=== PATIENT | male | born 1990 | race Caucasian/White ===

== ENCOUNTER 2019-01-15 12:55 | Emergency (ER) | payer MEDICARE, MEDICAID ==
--- NOTE | 2019-01-15 13:37 | ER Document Report ---
ED Medical Screen (RME) - General Chief Complaint: Leg Swelling Stated Complaint: LEG PAIN Time Seen by Provider: 01/15/19 13:30 TRAVEL OUTSIDE OF THE [place] IN LAST 30 DAYS: No - HPI Notes: 01/15/19 13:35 Patient is a 28-year-old male morbidly obese with no other medical history who presents complaining of bilateral lower extremity swelling that has been building over the past couple weeks. He does not take any medicines daily. He is eating and drinking without difficult he. He is urinating normally and having normal bowel movements. Patient states that he also has some crusting to his right eye that he noticed today some irritation. He does not wear contact lenses. Denies any prolonged immobilization, distance travel, recent surgery/trauma, personal cancer history, hormone use, or previous DVT/PE. Denies ANDERSON, fever, neck pain, URI, CP, SOB, Abd pain, or rash. I have treated and performed a rapid initial assessment of this patient. A comprehensive ED assessment and evaluation of the patient, analysis of test results and completion of medical decision making process will be conducted by additional ED providers. PHYSICAL EXAMINATION: GENERAL: morbidly obese. A&Ox4. Answers questions appropriately. Rt Eye: + mild injection with some flaking inferior lid/lashes. LUNGS: Breath sounds clear to auscultation bilaterally and equal. No wheezes rales or rhonchi. HEART: Regular rate and rhythm without murmurs, rubs, gallops. Extremities: 2-3+ pitting edema b/l LE's. No erythema. NEUROLOGICAL: Normal speech, normal gait. PSYCH: Normal mood, normal affect. - Related Data Allergies/Adverse Reactions: No Known Allergies Allergy (Unverified 01/15/19 12:58) Physical Exam - Vital signs Vitals: Temp Pulse Resp BP Pulse Ox 98.6 F 103 H 16 167/92 H 96 01/15/19 13:14 01/15/19 13:14 01/15/19 13:14 01/15/19 13:14 01/15/19 13:14 Course - Vital Signs Vital signs: Temp Pulse Resp BP Pulse Ox 98.6 F 103 H 16 167/92 H 96 01/15/19 13:14 01/15/19 13:14 01/15/19 13:14 01/15/19 13:14 01/15/19 13:14
--- NOTE | 2019-01-15 14:12 | RADIOLOGY REPORT (SQ) ---
EXAM DESCRIPTION: CHEST 2 VIEWS COMPLETED DATE/TIME: 01/15/2019 2:03 pm REASON FOR STUDY: LE edema COMPARISON: None. EXAM PARAMETERS: NUMBER OF VIEWS: two views TECHNIQUE: Digital Frontal and Lateral radiographic views of the chest acquired. RADIATION DOSE: NA LIMITATIONS: none FINDINGS: LUNGS AND PLEURA: No opacities, masses or pneumothorax. No pleural effusion. MEDIASTINUM AND HILAR STRUCTURES: No masses or contour abnormalities. HEART AND VASCULAR STRUCTURES: Heart normal size. No evidence for failure. BONES: No acute findings. HARDWARE: None in the chest. OTHER: No other significant finding. IMPRESSION: NO ACUTE RADIOGRAPHIC FINDING IN THE CHEST. TECHNICAL DOCUMENTATION: JOB ID: [id number] [employer]- All Rights Reserved Reading location - IP/workstation name: [email or web address]
[2019-01-15 14:28] LABS: ABSOLUTE EOSINOPHILS # (AUTO) 0.3 10^3/uL (0.0-0.6); ABSOLUTE LYMPHOCYTES (AUTO) 1.4 10^3/uL (0.5-4.7); ABSOLUTE MONOCYTES (AUTO) 0.6 10^3/uL (0.1-1.4); ABSOLUTE NEUT (AUTO) 7.3 10^3/uL (1.7-8.2); BASOPHILS % (AUTO) 0.4 % (0-2); EOSINOPHILS % (AUTO) 3.3 % (0-6); HEMATOCRIT 40.9 % (37.9-51.0); HEMOGLOBIN 13.5 g/dL (13.5-17.0); LYMPHOCYTES % (AUTO) 14.6 % (13-45); MEAN CORPUSCULAR HEMOGLOBIN 27.2 pg (27.0-33.4); MEAN CORPUSCULAR HGB CONC 32.9 g/dL (32.0-36.0); MEAN CORPUSCULAR VOLUME 83 fl (80-97); MONOCYTES % (AUTO) 6.6 % (3-13); PLATELET COUNT 216 10^3/uL (150-450); RED BLOOD COUNT 4.95 10^6/uL (4.35-5.55); RED CELL DISTRIBUTION WIDTH 15.1 % (11.5-14.0); SEGMENTED NEUTROPHILS % (AUTO) 75.1 % (42-78); TOTAL CELLS COUNTED % (AUTO) 100 %; WHITE BLOOD COUNT 9.7 10^3/uL (4.0-10.5)
[2019-01-15 14:52] LABS: ALANINE AMINOTRANSFERASE 41 U/L (21-72); ALBUMIN 3.6 g/dL (3.5-5.0); ALKALINE PHOSPHATASE 76 U/L (38-126); ANION GAP 7 (5-19); ASPARTATE AMINO TRANSFERASE 30 U/L (17-59); BILIRUBIN,DIRECT 0.3 mg/dL (0.0-0.4); BILIRUBIN,TOTAL 0.5 mg/dL (0.2-1.3); BLOOD UREA NITROGEN 14 mg/dL (7-20); CARBON DIOXIDE 33 mmol/L (22-30); CHLORIDE 99 mmol/L (98-107); GLUCOSE 108 mg/dL (75-110); POTASSIUM 4.5 mmol/L (3.6-5.0); TOTAL PROTEIN 6.9 g/dL (6.3-8.2)
[2019-01-15 15:01] LABS: APPEARANCE,URINE CLEAR; BILIRUBIN,URINE NEGATIVE (NEGATIVE); COLOR,URINE YELLOW; GLUCOSE, URINE NEGATIVE (NEGATIVE); KETONES,URINE NEGATIVE (NEGATIVE); LEUKOCYTE ESTERASE,URINE NEGATIVE (NEGATIVE); NITRITE,URINE NEGATIVE (NEGATIVE); PROTEIN,URINE NEGATIVE (NEGATIVE); URINE SPECIFIC GRAVITY 1.021; UROBILINOGEN,URINE NEGATIVE mg/dL (<2.0)
--- NOTE | 2019-01-15 16:30 | ER Document Report ---
ED General - General Chief Complaint: Leg Swelling Stated Complaint: LEG PAIN Time Seen by Provider: 01/15/19 13:30 TRAVEL OUTSIDE OF THE [place] IN LAST 30 DAYS: No - HPI Notes: Patient is a 28-year-old gentleman comes to the emergency department for evaluation of lower extremity edema. Is been ongoing for the last several weeks. He states it seems to get a little bit better in the morning but worsens throughout the day. He denies any associated chest pain or difficulty breathing. He has had no prolonged immobility, no recent surgeries, no history of DVT or PE. He has no family history of blood clots to his knowledge. He has no history of malignancy. He states his legs are painful. He has no other associated symptoms with episodes of edema. - Related Data Allergies/Adverse Reactions: No Known Allergies Allergy (Unverified 01/15/19 12:58) Past Medical History - General Information source: Patient - Social History Smoking Status: Current Every Day Smoker Chew tobacco use (# tins/day): No Frequency of alcohol use: Rare Drug Abuse: None Family History: Reviewed & Not Pertinent Patient has suicidal ideation: No Patient has homicidal ideation: No Renal/ Medical History: Denies: Hx Peritoneal Dialysis Review of Systems - Review of Systems Constitutional: No symptoms reported EENT: No symptoms reported Cardiovascular: See HPI Respiratory: No symptoms reported Gastrointestinal: No symptoms reported Genitourinary: No symptoms reported Musculoskeletal: No symptoms reported Skin: No symptoms reported Neurological/Psychological: No symptoms reported Physical Exam - Vital signs Vitals: Temp Pulse Resp BP Pulse Ox 98.6 F 103 H 16 167/92 H 96 01/15/19 13:14 01/15/19 13:14 01/15/19 13:14 01/15/19 13:14 01/15/19 13:14 - Notes Notes: Vital signs reviewed, please refer to chart. Morbidly obese gentleman, appears stated age in no acute distress. Patient is normocephalic, atraumatic. Pupils equal round, reactive to light. Neck is supple without meningismus. Heart is regular rate and rhythm. Lungs are clear to auscultation bilaterally. Abdomen is soft, nontender, normoactive bowel sounds throughout. Extremities without cyanosis, clubbing. 2+ pitting edema to bilateral pretibial regions, and into the feet. Neurovascularly intact, posterior tibial pulses are 2+ bilaterally. Capillary refill is brisk. No posterior calf tenderness. Peripheral pulses are equal. Skin is warm and dry. Patient is awake, alert, neurological exam is nonfocal. Course - Re-evaluation Re-evalutation: 01/15/19 16:27 Patient presents the emergency department for evaluation. His peripheral edema is evaluated via orders from triage, including evaluation for congestive heart failure. His evaluation here is entirely unremarkable. He has no signs of heart failure. He has no risk factors for blood clot. It is my suspicion that his edema is secondary to his high BMI. We did discuss compression stockings, keeping legs elevated, increasing activity, increasing watering take, and weight loss. We will have the patient follow-up. We also did discuss his elevated blood pressure. We discussed the increased risk of heart attack and stroke as a result of this. He was strongly encouraged to establish care with a primary care physician. He is to return to the emergency department with worsening or new concerning symptoms of any sort. - Vital Signs Vital signs: Temp Pulse Resp BP Pulse Ox 98.6 F 103 H 16 167/92 H 96 01/15/19 13:14 01/15/19 13:14 01/15/19 13:31 01/15/19 13:14 01/15/19 13:14 - Laboratory Result Diagrams: 01/15/19 14:00 01/15/19 14:00 Laboratory results interpreted by me: 01/15/19 01/15/19 14:00 14:00 RDW 15.1 H Carbon Dioxide 33 H - Diagnostic Test Radiology reviewed: Reports reviewed - No acute cardiopulmonary disease - EKG Interpretation by Me Additional EKG results interpreted by me: 01/15/19 16:28 Sinus mechanism with a rate of 95 bpm. Normal axis, no acute ST changes concerning for ischemia or infarction. Discharge - Discharge Clinical Impression: Edema Condition: Stable Disposition: HOME, SELF-CARE Instructions: Edema, Peripheral ([facility]) Additional Instructions: Increase activity level. Keep legs elevated. Decrease salt intake. Follow-up with primary care in 1-2 weeks. Return to the emergency department with worsening or new concerning symptoms of any sort. Forms: Elevated Blood Pressure
[2019-01-15 16:48] VITALS: BP 163/94
--- NOTE | 2019-01-16 13:09 | EKG REPORT ---
SEVERITY:- BORDERLINE ECG - SINUS RHYTHM BORDERLINE PROLONGED QT INTERVAL : Confirmed by: Gera Ty 16-Jan-2019 13:08:18
== END 2019-01-15 16:47 | disposition home or self-care (01) ==
LOC: ER 12:55
DX: R60.9 Edema, unspecified (principal); E66.01 Morbid (severe) obesity due to excess calories; F17.200 Nicotine dependence, unspecified, uncomplicated
CPT/HCPCS: 36415; 71046; 80053; 81001; 83880; 85025; 93005; 93010; 99284